=== PATIENT | female | born 1940 | race Caucasian/White ===

== ENCOUNTER 2018-08-31 05:36 | Inpatient (IN) | payer OTHER ==
[2018-08-21 11:18] VITALS: BMI 22.4
[2018-08-31] VITALS (27 sets, daily range): BP systolic 93–135; BP diastolic 56–76; PULSE 66–97; RESP 10–20; Ht 160 cm; Wt 58.4 kg
[~2018-08-31] VITALS: Ht 160 cm; Wt 58.4 kg
[2018-08-31] MEDS ORDERED: TRANEXAMIC ACID 1,000 MG in NS 100 ML PRE-OP X1 IVPB ONE (06:00)
[2018-08-31] MEDS ORDERED: ACETAMINOPHEN 500 MG TAB PO ONE (06:00)
[2018-08-31] MEDS ORDERED: CEFAZOLIN 2 GM/50 ML (PMX) 50 ML IVPB ONE (06:00)
[2018-08-31] MEDS ORDERED: TRANEXAMIC ACID 1,000 MG in NS 100 ML INTRA-OP X1 IVPB ONE (06:00)
[2018-08-31] MEDS ORDERED: LACTATED RINGER'S 1,000 ML IV* SCH (06:00)
[2018-08-31] MEDS ORDERED: DEXAMETHASONE 4 MG/ML 1 ML INJ IV ONE ×2 (06:00→07:00)
[2018-08-31] MEDS ORDERED: BACITRACIN 50000 UNITS INJ ONE (06:51)
[2018-08-31] MEDS ORDERED: POLYMYXIN B 500000 UNIT INJ ONE (06:54)
[2018-08-31] MEDS ORDERED: ACETAMINOPHEN 1000MG/100ML IV 100 ML IVPB SCH (07:00)
[2018-08-31] MEDS ORDERED: ASPI81TA52 PO (07:01)
[2018-08-31] MEDS ORDERED: FLUT200B INHALATION (07:02)
[2018-08-31] MEDS ORDERED: ATOR40TA68 PO (07:02)
[2018-08-31] MEDS ORDERED: MONT10TA24 PO (07:03)
[2018-08-31] MEDS ORDERED: ALBU8.5H8 INH (07:04)
[2018-08-31] MEDS ORDERED: TIOT18CA INHALATION (07:04)
[2018-08-31] MEDS ORDERED: PRED2.5T3 PO (07:04)
[2018-08-31] MEDS ORDERED: TIOT4MIS4 INHALATION (07:06)
[2018-08-31] MEDS ORDERED: ERGO2000 PO (07:06)
--- NOTE | 2018-08-31 07:21 | PREAC ---
Date/Time of Note Date/Time of Note DATE: 08/31/18 TIME: 07:19 Anesthesia Eval and Record Evaluation Time Pre-Procedure Interview DATE: 08/31/18 TIME: 07:19 Age 78 Sex female NPO: 8 hrs Preoperative diagnosis left hip osteoarthritis Planned procedure left total hip arthroplasty Past Medical History Past Medical History: Includes Cardio: Dyslipidemia, Arrythmia (pAfib) Pulm: Asthma (bronchiectasis on multiple inhalers and steroids) Surgery & Anesthesia Issues No known issue Meds Anticoagulation: No Beta Chris within 24 hr: No Reason Beta Chris not given: Pt. not on B-Chris Reported Medications Ergocalciferol (Vitamin D2) (VITAMIN D2) 2,000 Unit Tablet, 2000 UNIT PO DAILY, TAB 08/31/18 Tiotropium Br/Olodaterol HCl (Stiolto Respimat Inhal [place]) 4 Gm Mist.inhal, 2 PUFF INHALATION DAILY, #1 INHALER 08/31/18 Tiotropium [place]* (Spiriva*) 18 Mcg Cap.w.dev, 1 CAP INHALATION DAILY, #30 CAP 08/31/18 Albuterol Sulfate* (Proair HFA*) 8.5 Gm Hfa.aer.ad, 2 PUFF INH Q4H PRN for WHEEZING AND SOB, #1 INHALER 08/31/18 Prednisone* (Prednisone*) 2.5 Mg Tablet, 2.5 MG PO MONWEDFRI, TAB 08/31/18 Montelukast Sodium* (Montelukast Sodium*) 10 Mg Tablet, 10 MG PO QHS, #30 TAB 08/31/18 Atorvastatin* (Atorvastatin*) 40 Mg Tablet, 40 MG PO QHS, #30 TAB 08/31/18 Fluticasone Furoate (Arnuity Ellipta) 200 Mcg Blst.w.dev, 200 MCG INHALATION DAILY, #1 INHALER 08/31/18 Aspirin (Low Dose Aspirin) 81 Mg Tablet.dr, 81 MG PO DAILY, #30 TAB 08/31/18 Current Medications Lactated Ringer's 1,000 ml @ 125 mls/hr Q8H IV* ; Start 08/31/18 at 06:00; Stop 08/31/18 at 13:59 Meds reviewed: Yes Allergies Coded Allergies: No Known Allergies (Verified Allergy, Unknown, 08/31/18) Allergies Reviewed: Yes Labs/Studies Labs Reviewed: Reviewed by anesthesiologist test: N/A Pre-procedure Exam Last vitals Vital Signs Date Temp Pulse Resp B/P (MAP) Pulse Ox O2 O2 Flow FiO2 Time Delivery Rate 08/31/18 97.0 72 18 121/62 97 Room Air 07:05 (81) Airway: Adequate mouth opening, Adequate thyromental dist Mallampati: Mallampati II Teeth: Normal Lung: Normal Heart: Normal ASA Physical Status ASA physical status: 3 Emergency: None Planned Anesthetic General/MAC: LMA Neuraxial: Spinal Planned Pain Management Sub-arachniod narcotics, Parenteral pain med Pre-operative Attestations Prior to commencing anesthesia and surgery, the patient was re-evaluated, there was verification of: *The patient's identity *The results of appropriate recent lab work and preoperative vital signs *The above evaluation not changing prior to induction *Anesthetic plan, risk benefits, alternative and complications discussed with patient/family; questions answered; patient/family understands, accepts and wishes to proceed. MEHUL TALBOT MD Aug 31, 2018 07:21
[2018-08-31] MEDS ORDERED: LIDOCAINE 2% (SDV) 5 ML INJ ONE (07:26)
[2018-08-31] MEDS ORDERED: PROPOFOL 20 ML ONE (07:26)
--- NOTE | 2018-08-31 07:26 | HPN ---
Date/Time of Note Date/Time of Note DATE: 08/31/18 TIME: 07:26 Interval H&P Admission Note Pt. seen H&P reviewed: No system changes MERISSA MCARTHUR Aug 31, 2018 07:26
[2018-08-31] MEDS ORDERED: FENTAnyl 50 MCG/ML VIAL ONE (07:29)
[2018-08-31] MEDS ORDERED: MIDAZOLAM 1 MG/ML 2 ML INJ ONE (07:38)
[2018-08-31] MEDS ORDERED: CEFAZOLIN 1 GM INJ ONE (07:59)
[2018-08-31] MEDS ORDERED: ONDANSETRON 4 MG INJ ONE (08:19)
[2018-08-31] MEDS ORDERED: FAMOTIDINE 20 MG INJ ONE (08:20)
[2018-08-31] MEDS ORDERED: EPHEDrine SULFATE 50 MG/5 ML SYG ONE (08:20)
[2018-08-31] MEDS ORDERED: DIPHENHYDRAMINE 50 MG INJ IV PRN (08:30)
[2018-08-31] MEDS ORDERED: PROCHLORPERAZINE 10 MG INJ IV PRN (08:30)
[2018-08-31] MEDS ORDERED: HYDROmorphONE 1 MG/5 ML IV SYRINGE IV PRN ×2 (08:30)
[2018-08-31] MEDS ORDERED: MEPERIDINE 25 MG INJ IV PRN (08:30)
[2018-08-31] MEDS ORDERED: ONDANSETRON 4 MG INJ IV PRN (08:30)
[2018-08-31] MEDS ORDERED: FENTAnyl 50 MCG/ML VIAL IV PRN (08:30)
--- NOTE | 2018-08-31 09:01 | SIPON ---
Date/Time of Note Date/Time of Note DATE: 08/31/18 TIME: 09:00 Operative Report Preoperative Diagnosis Left hip osteoarthritis Postoperative Diagnosis Same Operation/Procedure Performed Left total hip replacement Surgeon see signature line assistant strength coach KISHA Wells Anesthesia: spinal Estimated blood loss: 150 - 200 ml's Transfusion Required none Specimen Bone Grafts/Implants Mayur hip, size 4 stem, 36 mm +5 head, 54 mm [place] cup Complications none MERISSA MCARTHUR Aug 31, 2018 09:01
[2018-08-31] MEDS: LACTATED RINGER'S 1,000 ML IV SCH ×2 (09:04→21:34)
--- NOTE | 2018-08-31 09:04 | OPR ---
Date/Time of Note Date/Time of Note DATE: 08/31/18 TIME: 09:01 Operative Report Procedure Date: Aug 31, 2018 Preoperative Diagnosis Left hip osteoarthritis Postoperative Diagnosis Same Operation/Procedure Performed Left total hip replacement Surgeon see signature line Senior Program Manager KISHA Wells Anesthesia Type: spinal Estimated Blood Loss: 150 - 200 ml's Transfusion none Specimen Bone Grafts/Implants Mayur hip, size 4 stem, 36+5 ceramic head, 54 mm [place] cup Tubes/Drains None Complications none Pt Condition Post Procedure: stable Disposition: PACU Indications Patient is an 78-year-old female with advanced osteoarthritis of her left hip Procedure Description The patient was placed supine on the operating room table. All bony points were well-padded. Preoperative antibiotics were administered. The left hip was approached anteriorly. The plane between the sartorius and tensor fascia sung was developed in a blunt fashion. Branches of the circumflex vessels were identified and cauterized with aqua mentis. The hip capsule was opened. Effusion and osteophytes were encountered. There was advanced arthritis with complete loss of cartilage and osteophyte formation. The neck cut was made 1 cm proximal to the lesser trochanter. The femoral head was removed. Labrum and osteophytes were removed. Reaming of the acetabulum was done with [employer] reamers up to a size 53. A 54 trial cup was well fitting. The Melcroft cup was then placed in 40 degrees of abduction and 20 degrees of anteversion. One screw was used to enhance fixation. Liner was placed to accommodate a 36 mm femoral head. The IM canal of the femur was then prepared. A size 4 stem was well fitting. The size 4 trial was placed with a high offset neck and 36 mm head for trial reduction. The reduction was stable. Leg length was adjusted. Final x-rays were satisfactory. Final implants were placed including a size 4 high offset stem with a 36 mm +5 ceramic head. Final x-rays were satisfactory and the wound was injected with pain cocktail. At the wound was thoroughly irrigated and hemostasis confirmed. Closure was done with #1 strata fix suture for deep fascia, 2-0 Vicryl for subcutaneous tissue and 3-0 Monocryl for the skin. Patient was transferred to the recovery room in stable condition MERISSA MCARTHUR Aug 31, 2018 09:04
[2018-08-31] MEDS ORDERED: NACL 0.9% 3 ML SYG IV SCH (09:30)
[2018-08-31] MEDS ORDERED: oxyCODONE 5 MG TAB PO PRN ×2 (09:30)
[2018-08-31] MEDS ORDERED: BISACODYL 10 MG SUPP PR PRN (09:30)
[2018-08-31] MEDS ORDERED: KETOROLAC 15 MG INJ IV PRN (09:30)
[2018-08-31] MEDS: CELECOXIB 100 MG CAP PO SCH ×2 (09:30→21:00)
--- NOTE | 2018-08-31 09:30 | PAC ---
Date/Time of Note Date/Time of Note DATE: 08/31/18 TIME: 09:30 Post-Anesthesia Notes Post-Anesthesia Note Last documented vital signs Vital Signs Date Temp Pulse Resp B/P (MAP) Pulse Ox O2 O2 Flow FiO2 Time Delivery Rate 08/31/18 98.5 09:22 08/31/18 72 18 121/62 97 Room Air 07:05 (81) Activity: WNL Respiratory function: WNL Cardiovascular function: WNL Mental status: Baseline Pain reasonably controlled: Yes Hydration appropriate: Yes Nausea/Vomiting absent: Yes Comments BP: 120/65 HR: 74 RR: 15 T: 98.5 SaO2: 100% MEHUL TALBOT MD Aug 31, 2018 09:30
[2018-08-31] MEDS: CEFAZOLIN 2 GM/50 ML (PMX) 50 ML IVPB SCH ×2 (10:10→17:30)
[2018-08-31] MEDS: ASPIRIN (EC) 81 MG TAB PO SCH ×2 (10:23→20:50)
--- NOTE | 2018-08-31 10:37 | NUR ---
PACU TRANSFERRED TO 429 IN STABLE COND. SP LEFT ANTERIOR HIP REPLACEMENT. SP SPINAL, ABLE TO MOVE BLE. PAIN 0/10 PER PT. SEEN BY / IN PACU. LEFT HIP DSG DRY/INTACT. REPORT GIVEN TO ROSELINE FRANCES. Addendum: 08/31/18 at 1110 by BERNA CASON RN Amended: Links added.
--- NOTE | 2018-08-31 11:30 | NUR ---
RECEIVED PATUIENT REPORT FROM DRUM PULLERJUAN DANIEL CORONEL AT 1120 . RECEIVED THE PATIENT TO ROOM 429 AT THIS TIME S/P ANTERIOR LEFT HIP REPLACEMENT BY DR. TESSA CRAVEN. . PATIENT ALERT , ORIENTED, VITALS STABLE. IV SITE INTACT AND PATENT . LEFT HIP SURGICAL SITE DRESSING INTACT AND NO BLEEDING NOTED. PATIENT INTRODUCED TO THE ROOM AND STYAFF. CALL LIGHT SYSTEM INTRODUCED . ICE PACK APPLIED. ALL SAFETY PRECAUTIONS MAINTAINED SUCH BED IN THE LOWEST POSITION, ALARMS ON, BRAKES ON, CALL LIGHT WITHIN REACH. WILL CONTINUE TO MONITOR.
--- NOTE | 2018-08-31 12:38 | CONS ---
Assessment/Plan Assessment/Plan Hospital Course (Demo Recall) 78 yo F with PMH bronchiectasis, alpha 1 antitrypsin, osteoporosis, COPD, and Vit D deficiency presented for elective L THR. POD #0 Assessment/Plan (Daily) 1. Left hip osteoarthritis s/p total hip replacement POD #0 - management per Ortho - pain control - aspirin BID 2. Bronchiectasis - will continue home bronchodilators 3. Vitamin D deficiency - continue replacement 4. Alpha 1 antitrypsin - continue home treatments 5. Disposition - PT/OT for discharge planning. Patient is requesting to return home with HHPT Thank you for allowing me to participate in the care of this patient. Please call with any questions. Consultation Date/Type/Reason Admit Date/Time Aug 31, 2018 at 05:36 Date of Consultation: Aug 31, 2018 Reason for Consultation medical management Date/Time of Note DATE: 08/31/18 TIME: 12:37 Hx of Present Illness 78 yo F with PMH bronchiectasis, alpha 1 antitrypsin, COPD, and Vit D deficiency presented for elective L THR after failed medical management for osteoarthritis. The hospitalist service was consulted for medical management during patients hospitalization. Patient was interviewed in the PACU and was nervous about the fact that she could not feel her feet. She continued to repeat herself but denies any pain or other concerning signs of symptoms. She denies any chest pain, shortness of breath, nausea, vomiting, abdominal issues, or dizziness. She did say she feels slightly "foggy." All 12 systems reviewed and pertinent positives as per HPI. All others negative. Constitutional: disoriented Eyes: No discharge ENT: No congestion Respiratory: No pain, No shortness of breath, No sputum, No wheezing Cardiovascular: No chest pain, No lightheadedness, No palpitations Gastrointestinal: No pain, No constipation, No diarrhea, No nausea, No vomiting Genitourinary: no complaints Musculoskeletal: other (diminished sensation in lower extremities bilaterally) Skin: no complaints Neurologic: no complaints Endocrine: no complaints Lymphatic: no complaints Psychological: nl mood/affect Immunologic: no complaints Past Medical History Medical History: other (bronchiectasis, alpha 1 antitrypsin, COPD, Vitamin D deficiency ) Home Meds Reported Medications Ergocalciferol (Vitamin D2) (VITAMIN D2) 2,000 Unit Tablet, 2000 UNIT PO DAILY, TAB 08/31/18 Tiotropium Br/Olodaterol HCl (Stiolto Respimat Inhal [place]) 4 Gm Mist.inhal, 2 PUFF INHALATION DAILY, #1 INHALER 08/31/18 Tiotropium [place]* (Spiriva*) 18 Mcg Cap.w.dev, 1 CAP INHALATION DAILY, #30 CAP 08/31/18 Albuterol Sulfate* (Proair HFA*) 8.5 Gm Hfa.aer.ad, 2 PUFF INH Q4H PRN for WHEEZING AND SOB, #1 INHALER 08/31/18 Prednisone* (Prednisone*) 2.5 Mg Tablet, 2.5 MG PO MONWEDFRI, TAB 08/31/18 Montelukast Sodium* (Montelukast Sodium*) 10 Mg Tablet, 10 MG PO QHS, #30 TAB 08/31/18 Atorvastatin* (Atorvastatin*) 40 Mg Tablet, 40 MG PO QHS, #30 TAB 08/31/18 Fluticasone Furoate (Arnuity Ellipta) 200 Mcg Blst.w.dev, 200 MCG INHALATION DAILY, #1 INHALER 08/31/18 Aspirin (Low Dose Aspirin) 81 Mg Tablet.dr, 81 MG PO DAILY, #30 TAB 08/31/18 Medications Current Medications Lactated Ringer's 1,000 ml @ 80 mls/hr [id number] IV ; Start 08/31/18 at 09:04 Oxycodone HCl (Roxicodone) 10 mg Q4H PRN PO PAIN LEVEL 7-10; Start 08/31/18 at 09:30 Oxycodone HCl (Roxicodone) 5 mg Q4H PRN PO PAIN LEVEL 4-6; Start 08/31/18 at 09:30 Ondansetron HCl (Zofran Inj) 4 mg Q4H PRN IV NAUSEA; Start 09/01/18 at 09:30 Cefazolin Sodium/ Dextrose 50 ml @ 100 mls/hr Q8H IVPB Last administered on 08/31/18at 10:10; Admin Dose 100 MLS/HR; Start 08/31/18 at 09:30; Stop 09/01/18 at 01:59 Celecoxib (Celebrex) 100 mg BID PO ; Start 08/31/18 at 09:30 Gabapentin (Neurontin) 100 mg TID PO ; Start 08/31/18 at 13:00 Pantoprazole (Protonix Tab) 40 mg DAILY@06 PO ; Start 09/01/18 at 06:00 Simethicone (Mylicon) 80 mg TID PRN PO CONSTIPATION; Start 08/31/18 at 09:30 Bisacodyl (Dulcolax Supp) 10 mg DAILY PRN [place] CONSTIPATION; Start 08/31/18 at 09:30 Ketorolac Tromethamine (Toradol) 15 mg Q6H PRN IV PAIN LEVEL 4-6; Start 08/31/18 at 09:30; Stop 09/02/18 at 09:29 IV Flush (NS 3 ml) 3 ml per protocol IV ; Start 08/31/18 at 09:30 Aspirin (Halfprin) 81 mg BID PO Last administered on 08/31/18at 10:23; Admin Dose 81 MG; Start 08/31/18 at 09:30 Allergies: Coded Allergies: No Known Allergies (Verified Allergy, Unknown, 08/31/18) Past Surgical History Past Surgical Hx: other (L THR, c section, breast surgery) Family History Significant Family History: no pertinent family hx Social History Alcohol Use: occasionally Smoking Status: Never smoker Drug Use: none Other Social History lives alone with dog Exam/Review of Systems Exam Vitals Vital Signs Date Temp Pulse Resp B/P (MAP) Pulse Ox O2 O2 Flow FiO2 Time Delivery Rate 08/31/18 70 16 127/63 100 Nasal 2.0 10:32 (84) Cannula 08/31/18 98.5 09:22 General: Patient is laying in bed, no acute distress. answering questions appropriately. HEENT: NC/AT. PERRL. EOM intact Neck: Supple Respiratory: Clear to auscultation bilaterally. no wheezing Cardiovascular: S1, S2, regular rate and rhythm, no obvious murmurs Gastrointestinal: soft, non-tender to palpation, nondistended, bowel sounds heard. no rebound or guarding Ext: moving feet bilaterally, no edema, cyanosis, or clubbing Neurological: no focal deficits, diminished sensation due to spinal Imaging Imaging PROCEDURE: Pelvis x-ray CLINICAL INDICATION: LT ANTERIOR TOTAL HIP REPLACEMENT OR7 TECHNIQUE: 2 AP views of the pelvis performed. COMPARISON: None FINDINGS: Left hip BENJAMIN appears properly aligned and intact. Surgical soft tissue swelling and air IMPRESSION: Expected intraoperative appearance of left hip BENJAMIN. RPTAT:AAJJ Terri Rainey, Physician Date Time Electronically viewed and signed by Terri Rainey, Physician on 08/31/2018 09:01 SIRI GUILLEN MD Aug 31, 2018 12:38
[2018-08-31] MEDS ORDERED: ALBUTEROL 0.083% (NEB) 2.5 MG/3 ML AMP HHN PRN (13:00)
[2018-08-31] MEDS: GABAPENTIN 100 MG CAP PO SCH ×2 (13:00→20:53)
--- NOTE | 2018-08-31 13:15 | NUR ---
PT evaluation Therapy day number 1 Evaluation Start Time 13:15 Evaluation End Time 14:15 Evaluation Total Time 60 min Subjective Denies pain Pain Scale NUMERIC Pain Intensity 0 (0-10) Patient Stated Goal for Pain Relief 0 (0-10) Pain Level Comment denies pain Pre Treatment Vital Signs Stable Yes Exercise Assessment Label Left Lower Extremity Exercise Type Active ROM Additional Exercise Comments Per BENJAMIN protocol Supine to Sit Modified Independent Transfer Sit to Stand Ability Modified Independent Bed Mobility Sit to Supine Modified Independent Bed Transfer Ability Supervised Chair Transfer Ability Supervised Additional Mobility Comments supervised with FWW Gait Assist Levels Minimum Assist Assistive Devices Front Wheel Walker Ambulation Distance 200 feet Additional Gait Comments with FWW, CGA throughout, 1 LOB requiring min A to recover Weight Bearing Assessment Label Left Lower Extremity Weight Bearing Status Weight Bearing as Lauro Static Sitting Balance Good Dynamic Sitting Balance Good Standing Static Balance Good Dynamic Standing Balance Fair Additional Balance Assessments Comments with FWW Safety Judgement Fair Activity Tolerance Good Equipment Present IV pump Post Treatment Pain Intensity 0 0-10 Additional Post Treatment Comment See note Total Minutes 60 Total Units 4 PT Technical Record Comment 78 yo female s/p L BENJAMIN anterior approach secondary to L hip osteoarthritis. PMH includes dyslipidemia, afib, asthma Precaution: WBAT LLE, BENJAMIN anterior precautions PLOF: Patient reports living alone in H no steps to enter. Son and daughter to assist post hospitalization. Previously using SPC due to pain but mod I throughout S: patient in bed, agreeable to PT evaluation. Pt cleared for activity per RN O: PT evaluation completed, pt returned back to bed following therapy intervention with call light within reach and bed alarm activated, in direct care of RN. Pt educated on HEP, precautions, and hip protocol. patient assisted to bathroom following and independent with hygiene. No reports of pain, dizziness, or shortness of breath with activity. Spoke to RN and CM regarding pt response to activity and PT plan of care. A: Patient demonstrates strong mobility throughout however limited secondary to decreased strength and sensation in LLE. Patient requires moderate UE support from FWW to assist with weight bearing due to L knee buckling. Patient additionally impulsive and requiring frequent cues to slow down and improve use of FWW. Patient overall receptive to PT education regarding HEP and recovery and motivated to participate. Patient could benefit from skilled inpatient physical therapy to improve strength, endurance, and functional mobility P: Progress gait training with FWW as tolerated Recommendation: defer discharge disposition to MD, pt will require FWW for safe mobility post hospitalization
--- NOTE | 2018-08-31 18:30 | NUR ---
END OF SHIFT NOTE: PATIENT COMFORTABLE. SURGICAL SITE INTACT . CLEARED BY PT FOR BED SIDE COMMODE. ICE PCK CONTINUED IN THE AFFECTED SITE. ASSISTED IN TO THE COMMODE FEW TIMES FOR VOIDING. ALL SAFETY PRECAUTIONS MAINTAINED. CALL LIGHT WITHIN REACH. EDUCATED REGARDING INCENTIVE QUENTIN METER ,SCD'D CONTINUED. WILL CONTINUE TO MONITOR.
[2018-08-31] MEDS ORDERED: MONTELUKAST 10 MG TAB PO SCH (21:00)
[2018-08-31] MEDS ORDERED: ATORVASTATIN 40 MG TAB PO SCH (21:00)
[2018-08-31] MEDS ORDERED: traZODone 50 MG TAB PO ONE (22:30)
[2018-09-01] MEDS: CEFAZOLIN 2 GM/50 ML (PMX) 50 ML IVPB SCH (00:33)
[2018-09-01 01:52] VITALS: BP 134/71; PULSE 103; RESP 18
--- NOTE | 2018-09-01 04:34 | NUR ---
END OF SHIFT NOTE: PATIENT IS A AND O X 4; NOT IN DISTRESS. VS IS WNL; ALL MEDICATIONS HAVE BEEN GIVEN ORDERED AND PRN; ALL NEEDS ATTENDED; CALL LIGHT WITHIN REACH ; WILL ENDORSE TO THE DAY SHIFT RN
[2018-09-01] MEDS ORDERED: PANTOPRAZOLE (EC) 40 MG TAB PO SCH (06:00)
[2018-09-01 07:45] VITALS: BP 128/62; PULSE 92; RESP 19
--- NOTE | 2018-09-01 08:25 | NUR ---
PT note Therapy day number 2 Subjective Current complaint of pain Pain Scale NUMERIC Pain Intensity 3 (0-10) Patient Stated Goal for Pain Relief 0 (0-10) Pain Level Comment pain with weight bearing Pre Treatment Vital Signs Stable Yes Exercise Assessment Label Left Lower Extremity Exercise Type Active ROM Additional Exercise Comments Per BENJAMIN HEP Transfer Training Start Time 08:25 Supine to Sit Modified Independent Transfer Sit to Stand Ability Modified Independent Bed Mobility Sit to Supine Modified Independent Bed Transfer Ability Modified Independent Chair Transfer Ability Modified Independent Transfer Training End Time 08:40 Total Transfer Training Time 15 min (8-127) Gait Training Start Time 08:40 Gait Assist Levels Modified Independent Assistive Devices Front Wheel Walker Ambulation Distance 300 feet Additional Gait Comments no LOB noted improved weight bearing LLE Gait Training End Time 09:05 Total Gait Training Treatment Time 25 min (8-127) Weight Bearing Assessment Label Left Lower Extremity Weight Bearing Status Weight Bearing as Lauro Additional Stairs Assist Comments patient instructed on sequencing for threshold step, good carryover Static Sitting Balance Good Dynamic Sitting Balance Good Standing Static Balance Good Dynamic Standing Balance Good Additional Balance Assessments Comments with FWW Safety Judgement Good Activity Tolerance Good Equipment Present IV pump Post Treatment Pain Intensity 0 0-10 Additional Post Treatment Comment See note Total Treament Time 40 min (8-127) Total Minutes 40 Total Units 3 PT Technical Record Comment S: Patient in bed, agreeable to PT intervention. pt cleared for activity per RN O: PT intervention completed, pt returned back to bed following therapy intervention with call light within reach and bed alarm activated. Spoke to RN regarding pt response to activity and PT plan of care. Patient educated on safety, HEP, recovery, and step training. Reports of pain with weight bearing but no dizziness or shortness of breath throughout. A: Pt receptive to PT education and demonstrates good carryover to task. Pt understanding of safety precautions and presents with improved weight bearing on LLE with no presence of buckling. Patient presents with mild antalgic gait and pt educated to improve upright posture and equalizing stride length. Patient demonstrates mod I functional mobility with FWW and thus does not require skilled inpatient PT at this time, as patient will improve with routine care P: Discharge physical therapy, pt may ambulate with nursing, recommend use of FWW
[2018-09-01] MEDS: GABAPENTIN 100 MG CAP PO SCH ×2 (08:36→13:16)
[2018-09-01] MEDS: ASPIRIN (EC) 81 MG TAB PO SCH (08:36)
[2018-09-01] MEDS: CELECOXIB 100 MG CAP PO SCH (08:36)
[2018-09-01] MEDS ORDERED: predniSONE 2.5 MG TAB PO SCH (09:00)
[2018-09-01] MEDS ORDERED: CHOLECALCIFEROL 2,000 UNIT CAP PO SCH (09:00)
[2018-09-01] MEDS ORDERED: FLUTICASONE FUROATE 200 MCG INHALATION SCH (09:00)
[2018-09-01] MEDS ORDERED: NON-FORMULARY/PATIENT OWN MED (Tiotropium Br/Olodaterol HCl (Stiolto Respimat Inhal Spray) INHALATION SCH (09:00)
[2018-09-01] MEDS ORDERED: TIOTROPIUM 18 MCG CAPSULE INHA DEV INH SCH (09:00)
[2018-09-01] MEDS ORDERED: ONDANSETRON 4 MG INJ IV PRN (09:30)
--- NOTE | 2018-09-01 09:45 | NUR ---
OT EVAL: 78 yo female s/p L BENJAMIN anterior approach secondary to L hip osteoarthritis. PMH includes dyslipidemia, afib, asthma Precaution: WBAT LLE, BENJAMIN anterior precautions PLOF: Patient reports living alone in H no steps to enter. Son and daughter to assist post hospitalization. Previously using quad can due to pain. Pt was independent with ADL's. Pt reports owning a FWW. CLOF: RN cleared pt for skilled OT evaluation. Pt received supine in bed and agreeable to tx. Pt AOx4, stated 2/10 pain in left hip and demonstrated BUE AROM WFL. OTR educated on WB status, Anterior Hip Precautions and AE for LB dressing. Pt demonstrated bed mob, toilet transfer and functional mob with Mod I using FWW with good safety awareness. Pt donned underwear and socks seated at bedside using AE (sock aid, dressing stick and long handed inventory specialist) with Mod I. Pt stood at bathroom sink with FWW while completing h/g task independently. Pt left supine in bed with all needs met. RN notified. Pt demonstrated functional mob, transfers and ADL's with MOd I and good safety awareness. No further skilled OT warranted Recommendation: defer discharge disposition to
[2018-09-01] MEDS: LACTATED RINGER'S 1,000 ML IV SCH (10:04)
--- NOTE | 2018-09-01 10:35 | NUR ---
LEFT A MESSAGE TO [facility]. PT RE: DISCHARGE ORDER
--- NOTE | 2018-09-01 10:43 | NUR ---
ANNE MARIE NOTES: MET WITH THE PT AT THE BEDSIDE. PT IS A 78 YRS OLD FEMALE WITH ADMITTING DX OF LEFT HIP DEGENERATIVE JOINT DISEASE. PRIOR TO THE ADMISSION, PT LIVED AT HOME AND NO PREVIOUS HH AND NO PREVIOUS DME. THIS CM VERIFIED THE ADDRESS AND TELEPHONE #S ARE CORRECT. PT HAS SEC HORIZONS WITH [facility] [phone], PREETHI ASSIGNED CM. PT AGREED WITH FWW BUT DOES NOT WANT TO HAVE BSC. SHOWER CHAIR IS NOT A COVER BENEFIT. PT UNDERSTOOD. THIS CM INFORMED [facility] [phone] PREETHI REGARDING THE ORDERS WITH HOME HEALTH AND BLOOD DRAW. PER [facility] PREETHI [phone], HE WILL MAKE THE ARRANGEMENTS. [facility] HANDLES ALL DC ON THEIR MEMBERS. FOR DC PLANNING ARRANGEMENTS AND DC ISSUES, PLEASE CALL [facility] PREETHI [phone] DIRECTLY. OMER JONES CM [phone] Addendum: 09/01/18 at 1048 by OMER ALMANZAR CM Amended: Links added.
--- NOTE | 2018-09-01 11:16 | NUR ---
SPOKED TO DR. MCARTHUR ON THE PHONE RE: DISCHARGE AND H/H RESULT. STATED "PT IS CLEAR TO DC HOME". PT IS OLDER MAY TAKE IRON OTC AND EAT FOODS RICH IN IRON."
--- NOTE | 2018-09-01 11:48 | NUR ---
CALLED HCP SPOKED TO PREETHI. HE STATED THAT HH IS NOT ARRANGED YET, HE WILL GIVE ME A FF-UP CALL ONCE HH IS ARRANGED. FWW WILL BE DELIVERED TO PT ROOM TODAY.
--- NOTE | 2018-09-01 12:49 | CONS ---
Assessment/Plan Assessment/Plan Hospital Course (Demo Recall) SUBJECTIVE: No acute distress. Has been up with physical therapy and plan is d ischarge home with home health today. OBJECTIVE: Vital signs-see below PHYSICAL EXAM: Constitutional: Well-developed, adequately built, lying in bed comfortably. Psych: nl mood/affect, no complaints Head: atraumatic, normocephalic Eyes: nl conjunctiva, nl sclera ENMT: mucosa pink and moist, nl external ears & nose Neck: non-tender, supple Respiratory: clear to auscultation, normal air movement Cardiovascular: nl pulses, regular rate and rhythm Gastrointestinal: non-tender, soft, bowel sounds active in all 4 quadrants. Musculoskeletal/extremities: Left hip surgical site intact nl extremities to inspection, motor strength equal bilaterally, no focal deficit. Normal pulses,no cyanosis, no edema. Neurological: Alert oriented 3,nl speech, nl strength Skin: nl turgor ASSESSMENT/PLAN:78 yo F with PMH bronchiectasis, alpha 1 antitrypsin, osteoporosis, COPD, and Vit D deficiency presented for elective L THR. POD #0 1. Left hip osteoarthritis s/p total hip replacement POD #1 - management per Ortho - pain control - aspirin BID 2. Bronchiectasis - continue home bronchodilators 3. Vitamin D deficiency - continue replacement 4. Alpha 1 antitrypsin - continue home treatments Agree with discharge planning with home health PT. Patient to follow-up with orthopedic surgeon in 2 weeks after discharge. Patient to continue aspirin twic e a day for VT prophylaxis per orthopedic recommendation. Patient was seen in collaboration with Consultation Date/Type/Reason Admit Date/Time Aug 31, 2018 at 05:36 Initial Consult Date 08/31/18 Date/Time of Note DATE: 09/01/18 TIME: 12:48 Exam/Review of Systems Exam Vitals Vital Signs Date Temp Pulse Resp B/P (MAP) Pulse Ox O2 O2 Flow FiO2 Time Delivery Rate 09/01/18 98.2 92 19 128/62 98 07:45 (84) 09/01/18 21 00:21 08/31/18 Room Air 13:45 08/31/18 2.0 10:32 Intake and Output 08/31/18 08/31/18 09/01/18 1515:00 23:00 07:00 IntakeIntake Total 2350 ml 700 ml 50 ml OutputOutput Total 660 ml 300 ml BalanceBalance 1690 ml 400 ml 50 ml Results Result Diagram: 09/01/18 0438 09/01/18 0438 Results 24hrs Laboratory Tests Test 09/01/18 04:38 09/01/18 06:38 White Blood Count 11.2 H Red Blood Count 2.86 L Hemoglobin 7.7 L Hematocrit 25.0 L Mean Corpuscular Volume 87.4 Mean Corpuscular Hemoglobin 26.9 L Mean Corpuscular Hemoglobin Concent 30.8 L Red Cell Distribution Width 13.3 Platelet Count 187 Mean Platelet Volume 10.1 Immature Granulocytes % 0.400 Neutrophils % 73.2 Lymphocytes % 18.0 Monocytes % 7.2 Eosinophils % 1.0 Basophils % 0.2 Nucleated Red Blood Cells % 0.0 Immature Granulocytes # 0.040 H Neutrophils # 8.2 H Lymphocytes # 2.0 Monocytes # 0.8 Eosinophils # 0.1 Basophils # 0.0 Nucleated Red Blood Cells # 0.0 Sodium Level 142 Potassium Level 4.1 Chloride Level 108 Carbon Dioxide Level 28 Anion Gap 6 Blood Urea Nitrogen 19 Creatinine 0.72 Est Glomerular Filtrat Rate mL/min Glucose Level 113 Calcium Level 8.3 L Lab Scanned Report REFERENCE LAB MANA MARRUFO NP Sep 01, 2018 12:49
[2018-09-01] MEDS ORDERED: ASPI-903 PO (13:57)
--- NOTE | 2018-09-01 14:57 | NUR ---
WALKER WAS DELIVERED TO THE PT. HOSPITALIST MANA WAN STATED THAT PT IS CLEARED TO DC HOME MDICALLY. [facility] CALLED THAT EVERYTHING IS ARRANGED. AND THAT PT IS CLEARED TO DC HOME. WILL NOTIFY THE PT RE: DISCHARGE.
[2018-09-01 15:09] VITALS: BP 121/60; PULSE 82; RESP 19
== END 2018-09-01 16:45 | disposition home health service (06) | DRG 470 ==
LOC: REC 05:36 → MS1 10:33
PROVIDERS: ADMIT Orthopaedic Surgery; ATTEND Orthopaedic Surgery
PROC: 0SRB04A Replacement of Left Hip Joint with Ceramic on Polyethylene Synthetic Substitute, Uncemented, Open Approach (ICD-10-PCS; principal; 2018-08-31 07:30)
DX: M16.12 Unilateral primary osteoarthritis, left hip (principal); E78.5 Hyperlipidemia, unspecified; J47.9 Bronchiectasis, uncomplicated; E55.9 Vitamin D deficiency, unspecified
CPT/HCPCS: 72170; 80048; 85025; 86850; 86900; 86901; 87081; 88304; 88311; 94664; 97116; 97161; 97165; 97530; C1713; C1776; J0131; J0171; J0690; J0735; J1100; J1885; J2250; J2405; J2795; J3010; J7120; J7512